=== PATIENT | male | born 1945 | race Caucasian/White ===

== ENCOUNTER 2018-10-04 14:30 | Emergency (ER) | payer MEDICARE, MEDICAID ==
[2018-10-04 15:05] VITALS: BP 132/64
--- NOTE | 2018-10-04 15:42 | UC ---
Lower Extremity/Ankle HPI - HPI Summary HPI Summary: Pt presents with c/o right ankle pain, swelling, erythema and tenderness X 7 days ago after slipping on ice. Also, c/o left great toe pain, swelling, erythema and clear discharge at left great toe nail bed on left lateral edge. - History of Current Complaint Chief Complaint: UCLowerExtremity Stated Complaint: RIGHT LEG PAIN, LEFT TOE INJURY Time Seen by Provider: 10/04/18 15:02 Hx Obtained From: Patient Onset/Duration: Sudden Onset, Lasting Days, Still Present Severity Initially: Moderate Severity Currently: Moderate Pain Intensity: 5 Aggravating Factor(s): Standing, Ambulation Alleviating Factor(s): Rest Able to Bear Weight: Yes - minimum - Risk Factors Gout Risk Factors: Age Over 40, Male DVT Risk Factors: Negative Septic Arthritis Risk Factor: Negative - Allergies/Home Medications Allergies/Adverse Reactions: Allergies Allergy/AdvReac Type Severity Reaction Status Date / Time budesonide [From Symbicort] Allergy See Comment Verified 10/04/18 15:00 formoterol [From Symbicort] Allergy See Comment Verified 10/04/18 15:00 Home Medications: Home Medications Gabapentin CAP(*) [Neurontin 400 mg CAP(*)] 600 mg PO TID 10/04/18 [History Confirmed 10/04/18] PMH/Surg Hx/FS Hx/Imm Hx Previously Healthy: Yes Neurological History: Other - parkinson - Surgical History Surgical History: Yes Surgery Procedure, Year, and Place: appy, lypoma on back, deep brain stimulator 09/2017 - Family History Known Family History: Positive: Cardiac Disease - Social History Occupation: Retired Lives: Alone Alcohol Use: None Substance Use Type: None Smoking Status (MU): Never Smoked Tobacco Have You Smoked in the Last Year: No - Immunization History Most Recent Tetanus Shot: <5 YEARS Review of Systems All Other Systems Reviewed And Are Negative: Yes Constitutional: Positive: Negative Skin: Positive: Other - erythema, Eyes: Positive: Negative ENT: Positive: Negative Respiratory: Positive: Negative Cardiovascular: Positive: Negative Gastrointestinal: Positive: Negative Genitourinary: Positive: Negative Motor: Positive: Decreased ROM - right ankle Neurovascular: Positive: Negative Musculoskeletal: Positive: Arthralgia, Decreased ROM, Edema, Myalgia Neurological: Positive: Negative Psychological: Positive: Negative Is Patient Immunocompromised?: No Physical Exam Triage Information Reviewed: Yes Appearance: Well-Appearing Vital Signs: Initial Vital Signs Temp 98.2 F 10/04/18 14:58 Pulse 64 10/04/18 14:58 Resp 18 10/04/18 14:58 BP 132/64 10/04/18 14:58 Pulse Ox 98 10/04/18 14:58 Vital Signs Reviewed: Yes Eye Exam: Normal ENT Exam: Normal Dental Exam: Normal Neck exam: Normal Respiratory Exam: Normal Cardiovascular Exam: Normal Musculoskeletal Exam: Other Musculoskeletal: Positive: ROM Limited @ - right ankle, Edema @ - 1+ pitting edema right LE, Neurological Exam: Other - has parkinsons Psychological Exam: Normal Skin Exam: Other - erythema, ingrown toe nail left great toe lateral aspect Skin: Positive: Other - erythema, right lateral malleolus, Diamter ~ 4 cm Diagnostics - Radiology No standard instances Radiology Interpretation Completed By: Radiologist - IMPRESSION: Spiral fracture of the distal fibula with soft tissue swelling laterally. Lower Extremity Course/Dx - Differential Dx/Diagnosis Differential Diagnosis/HQI/PQRI: Cellulitis, DVT, Fracture (Closed), Sprain Provider Diagnosis: Right fibular fracture, Ingrown left big toenail Discharge - Sign-Out/Discharge Documenting (check all that apply): Patient Departure All imaging exams completed and their final reports reviewed: Yes - Discharge Plan Condition: Stable Disposition: HOME Prescriptions: Cephalexin CAP* [Keflex 500 CAP*] 500 mg PO Q8H #21 cap Patient Education Materials: Ingrown Nail (ED), Ankle Fracture (ED) Referrals: Ismael Clark MD [Primary Care Provider] - If Needed Fabian Patel MD [Medical Doctor] - As Soon As Possible - Billing Disposition and Condition Condition: STABLE Disposition: Home
== END 2018-10-04 16:29 | disposition home or self-care (01) ==
LOC: UCCORT 14:30
DX: Z88.8 Allergy status to other drugs, medicaments and biological substances (principal); S82.831A Other fracture of upper and lower end of right fibula, initial encounter for closed fracture; W00.0XXA Fall on same level due to ice and snow, initial encounter; Y93.9 Activity, unspecified; Y92.9 Unspecified place or not applicable; L60.0 Ingrowing nail
CPT/HCPCS: 99203; G0463